=== PATIENT | female | born 1970 | race Caucasian/White ===

== ENCOUNTER 2021-02-09 00:25 | Emergency (ER) | payer OTHER ==
[~2021-02-09] VITALS: Ht 167.6 cm; Wt 70.0 kg
[~2021-02-09 00:25] MED LIST: SERT100T PO
--- NOTE | 2021-02-09 00:46 | NUR ---
Patient presents to ER c/o left side flank pain and nausea since approx 2300. No hx of same. Patient is in obvious discomfort. Respirations even and unlabored.
[2021-02-09] MEDS ORDERED: MORPHINE SULFATE 4 MG/ML, 1ML ONE ×2 (01:01→01:25)
[2021-02-09] MEDS ORDERED: ONDANSETRON 2MG/ML, 2ML ONE (01:01)
[2021-02-09] MEDS ORDERED: KETOROLAC 30 MG/1 ML ONE (01:10)
[2021-02-09] MEDS: MORPHINE SULFATE 4 MG/ML, 1ML IVPush PRN ×2 (01:14→01:31)
[2021-02-09 01:21] LABS: MICROSCOPIC AUTO
[2021-02-09 01:23] LABS: BASOPHILS % (AUTO) 0 % (0-1); EOSINOPHILS % (AUTO) 0 % (1-7); LYMPHOCYTES % (AUTO) 38 % (22-44); MEAN CORPUSCULAR HEMOGLOBIN 30.8 pg (27.0-34.8); MEAN CORPUSCULAR HGB CONC 34.3 g/dL (32.4-35.8); MEAN PLATELET VOLUME 7.9 fL (7.4-10.4); MONOCYTES % (AUTO) 7 % (2-9); NEUTROPHILS % (AUTO) 54 % (42-75); PLATELET COUNT 373 x10^3/uL (130-400); RED BLOOD COUNT 4.45 x10^6/uL (3.82-5.3); RED CELL DISTRIBUTION WIDTH 13.2 % (9.6-15.2)
[2021-02-09 01:25] LABS: ALANINE AMINOTRANSFERASE 21 U/L (12-78); ALBUMIN 3.5 g/dL (3.4-5.0); ANION GAP 9 mmol/L (5-15); CALCIUM 8.6 mg/dL (8.5-10.1); CHLORIDE 109 mmol/L (98-107); CREATININE 1.04 mg/dL (0.55-1.02)
[2021-02-09 01:28] LABS: ALKALINE PHOSPHATASE 77 U/L (45-117); BILIRUBIN,TOTAL 0.3 mg/dL (0.2-1.0); TOTAL PROTEIN 7.5 g/dL (6.4-8.2)
[2021-02-09] MEDS ORDERED: KETOROLAC 30 MG/1 ML IVPush ONE (01:30)
[2021-02-09] MEDS ORDERED: ONDANSETRON 2MG/ML, 2ML IVPush ONE (01:30)
--- NOTE | 2021-02-09 01:30 | NUR ---
Pt in lots of pain. pt given second dose of morphine and expressed much releif after medication given. denies needs at this time.
--- NOTE | 2021-02-09 02:27 | NUR ---
pt back from ct, resting on gur[place]doulaye, denies needs at this time.
[2021-02-09 03:00] VITALS: BP 121/70
--- NOTE | 2021-02-09 03:00 | NUR ---
pt resting on gurney, denies needs at this time.
[2021-02-09] MEDS ORDERED: HYDROcodone/APAP 5/325 TABLET ONE (03:51)
[2021-02-09] MEDS ORDERED: HYDROcodone/APAP 5/325 TABLET PO ONE (04:00)
--- NOTE | 2021-02-09 04:00 | NUR ---
Patient given discharge instructions and they have confirmed that they understand the instructions. Patient ambulatory with steady gait.
== END 2021-02-09 04:03 | disposition home or self-care (01) ==
LOC: ED 01:59
DX: N13.2 Hydronephrosis with renal and ureteral calculous obstruction (principal)
CPT/HCPCS: 36415; 74176; 80053; 81001; 83690; 85025; 96374; 96375; 99284; J1885; J2270; J2405